=== PATIENT | male | born 1990 | race Caucasian/White ===

== ENCOUNTER 2016-10-16 14:34 | Emergency (ER) | payer OTHER ==
[~2016-10-16] VITALS: Ht 180.3 cm; Wt 81.6 kg
== END 2016-10-16 21:36 | disposition home or self-care (01) ==
LOC: ED 14:34
DX: S40.022A Contusion of left upper arm, initial encounter (principal); F17.200 Nicotine dependence, unspecified, uncomplicated; V86.99XA Unspecified occupant of other special all-terrain or other off-road motor vehicle injured in nontraffic accident, initial encounter; Y93.89 Activity, other specified; Y92.413 State road as the place of occurrence of the external cause; Y99.8 Other external cause status

== ENCOUNTER 2016-11-11 08:51 | Emergency (ER) | payer OTHER ==
[~2016-11-11] VITALS: Ht 177.8 cm; Wt 86.2 kg
[2016-11-11] MEDS ORDERED: FLONASE ALLERG9.9 ML NS (09:10)
[2016-11-11] MEDS ORDERED: ZYRTEC10 MG PO (09:10)
== END 2016-11-11 10:54 | disposition home or self-care (01) ==
LOC: ED 08:51
DX: J06.9 Acute upper respiratory infection, unspecified (principal); F17.200 Nicotine dependence, unspecified, uncomplicated

== ENCOUNTER 2017-01-17 10:33 | Emergency (ER) | payer OTHER ==
[~2017-01-17] VITALS: Ht 180.3 cm; Wt 86.2 kg
[~2017-01-17 10:33] MED LIST: FLONASE ALLERG9.9 ML NS; ZYRTEC10 MG PO
[2017-01-17] MEDS ORDERED: PREDNISONE10 MG PO (11:03)
[2017-01-17] MEDS ORDERED: ROBITUSSIN DM 105 ML PO (11:03)
[2017-01-17] MEDS ORDERED: CLARITIN10 MG PO (11:03)
[2017-01-17] MEDS ORDERED: FLONASE ALLERG9.9 ML NAS (11:03)
== END 2017-01-17 11:49 | disposition home or self-care (01) ==
LOC: ED 10:33
DX: B34.9 Viral infection, unspecified (principal); R03.0 Elevated blood-pressure reading, without diagnosis of hypertension; F17.200 Nicotine dependence, unspecified, uncomplicated; Z79.899 Other long term (current) drug therapy